=== PATIENT | male | born 1960 | race Caucasian/White ===

== ENCOUNTER 2020-04-28 17:47 | Inpatient (IN) | payer OTHER ==
[~2020-04-28] VITALS: Ht 185.4 cm; Wt 158.7 kg
[2020-04-28] MEDS ORDERED: LANTUS SOL100 UNIT/1 SUB-Q (17:57)
[2020-04-28] MEDS ORDERED: CATAPRES0.1 MG PO (17:58)
[2020-04-28] MEDS ORDERED: NOVOLOG FL100 UNIT/1 SUB-Q (17:58)
[2020-04-28] MEDS ORDERED: LASIX40 MG PO (17:58)
--- NOTE | 2020-04-28 21:45 | NUR ---
PT ARRIVED TO THE [facility] FLOOR AT 2109. HE WAS ABLE TO PIVOT TRANSFER OVER TO THE BED SBA. LEFT LEG IS ELEVATED ON PILLOW WITH CHUX UNDER FOR DRAINAGE. BRITTANY RN ENTERED ROOM AND ADMINISTERED PT'S MEDICATIONS. HE HAS VANCO INFUSING IN THIS LEFT AC IV AND R AC ROXANNA FLUSHES FINE. PT REPORTED PAIN AT 7/10. HE DENIES ANY ALLERGY TO TYLENOL ONLY THE HYDROCODONE. COMPLETED PT'S INTAKE HX AND ORDERED A SANDWICH BOX PT HAS NOT EATEN ALL DAY. PRIMARY RN BRITTANY IS IN THE ROOM WITH HIM AT THIS TIME.
--- NOTE | 2020-04-28 21:45 | NUR ---
pt ARRIVED TO FLOOR. HUY HALL IN ROOM TO DO ADMISSION. ASSESSMENT DONE. pt REPORTED PAIN IN LEFT LEG. PAIN MEDICATION GIVEN WITH OTHER MEDS. pt ALERT AND ORIENTED. BLISTERS NOTED ON LEFT LEG. ELEVATED. RED AND WARMER THAN RIGHT LEG. BOTH LEGS ARE EDEMATOUS. pt REPORTS USING "VELCRO COMPRESSION STOCKINGS" BILATERALLY. CALL LIGHT WITHIN REACH.
--- NOTE | 2020-04-28 21:51 | NUR ---
BROUGHT SANDWICH BOX TO PT, HE DENIES FURTHER NEEDS AND CALL LIGHT IS CLOSE.
--- NOTE | 2020-04-28 23:45 | NUR ---
IV ABX COMPLETED. SL. pt AWAKE. FINISHED WITH SANDWICH. WASHED LEG AND DRESSED PER ORDERS. MRSA SWAB COLLECTED PER PROTCOL. NO REQUESTS AT THIS TIME. CALL LIGHT WITHIN REACH.
--- NOTE | 2020-04-29 02:26 | NUR ---
IN TO GET PT VITALS, ADD ICE TO WATER, NO FURTHER NEEDS AT THIS TIME, PEELING OF IV SITE DRESSING NOTED, RN INFORMED
--- NOTE | 2020-04-29 03:17 | NUR ---
IN TO GIVE ABX. pt REPORTED 5/10 PAIN IN LEFT LEG, PRN GIVEN (SEE MAR). pt DIAPHORETIC, "I THINK MY FEVER BROKE, I'M FEELING A LOT BETTER." NO CHANGE NOTED ON ASSESSMENT. NO FURTHER REQUESTS CALL LIGHT WITHIN REACH.
--- NOTE | 2020-04-29 05:41 | NUR ---
ROUNDED ON pt. REPORTED PAIN, PROVIDED A WARM PACK FOR BACK PAIN. DISCUSSED PAIN MANAGEMENT. VITALS AND I&O RECORDED pt HAS YET TO VOID THIS AM. NO REQUESTS AT THIS TIME. CALL LIGHT WITHIN REACH.
--- NOTE | 2020-04-29 06:37 | NUR ---
IN TO DO VITALS. pt WOKE TO VOICE. REPORTED "I FEEL A LOT BETTER." pt HAS YET TO VOID. PROVIDED FRESH WATER AND pt WILL ATTEMPT AND CALL WHEN DONE. PROVIDED MENU AND PHONE. CALL LIGHT WITHIN REACH.
--- NOTE | 2020-04-29 07:15 | NUR ---
SHIFT REPORT FROM BRITTANY SON INCLUDED: Pt here for left leg cellulitis. Pts leg has been elevated on a pillow overnight. Leg is swollen 3+ and hot to the touch. Pt reports minimal tolerable pain in the leg at this time. Pt currently in bed, breathing even and unlabored, table and call light within reach.
--- NOTE | 2020-04-29 09:00 | NUR ---
MED PASS + ASSESSMENT Pt assessment complete, VSS, pt reports "feeling better today" and that to him his left leg "looks better already". Pts Left leg is still pink and edematous and hot to the touch. Pt getting IV ABX as ordered. Pt able to take all morning meds without dificulty. Pt educated to call with any IV site concerns, pt verbalized understanding. Pt denies further needs at this time. Pt CBG was 149, so 3 units insulin given per sliding scale, + 40units lantus as ordered. Pt sitting up in bed, having breakfast, table and call light within reach.
[2020-04-29] MEDS ORDERED: COMBIGAN EYE DRO5 ML OS (09:24)
[2020-04-29] MEDS ORDERED: NORVASC10 MG PO (09:27)
[2020-04-29] MEDS ORDERED: PENTOXIFYLLINE400 MG PO (09:28)
[2020-04-29] MEDS ORDERED: LIPITOR40 MG PO (09:36)
--- NOTE | 2020-04-29 09:36 | NUR ---
MED REC COMPLETE
--- NOTE | 2020-04-29 10:00 | NUR ---
ROUNDING Pt denies needs at this time. Table and call light within reach.
--- NOTE | 2020-04-29 11:00 | NUR ---
ROUNDING Pt denies pain, nausea, and needs at this time. Pt still getting IV ABX infused as ordered. Pt in bed, table and call light within reach.
--- NOTE | 2020-04-29 12:00 | NUR ---
CBG + GRAPHICS ARTIST + LUNCH ORDER Pt CBG was 160, 3units given per sliding scale orders. Pt ordered lunch, and given applesauce now while he waits. Pt denies pain and nausea at this time. Pt in bed, sitting up, visiting with spiritual Care Sergio. Pt in bed, table and call light within reach.
--- NOTE | 2020-04-29 12:19 | NUR ---
Spoke with Ghanshyam. 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 His and grandson will move here when he has found housing. He is currently residing at [facility]. He has not completed his insurance packet and requests assistance obtaining. He plans on returning to the [facility] where he is staying alone. I called and spoke with Andressa from and she will fax his insurance packet to complete. Will send referral to [facility] as pt is new to area and may need assist with resources until leg has healed.
--- NOTE | 2020-04-29 12:29 | NUR ---
PT ALERT, ORIENTED AND JUST MOVED HERE THIS WEEK. PT HAS LOTS OF STRESS IN HIS LIFE NOW. FROM HIS AND FAMILY, WAITING TO COME WHEN A HOME IS SECURED. NEW JOB AND OTHER HEALTH ISSUES. GAVE ENCOURAGEMENT, INFO AND G.POST. PT REQUESTED PRAYER, ALSO HELP IN SECURING PCP. INFORMED KATHRINE SON CHARGE. SHE WILL FOLLOW UP.
--- NOTE | 2020-04-29 12:35 | NUR ---
Attempted to schedule pt, unable to contact Noreen. FAxed H&P, face sheet, and med list to [facility] with request to schedule appt to establish care. Sent a note, it is unclear if pt has insurance at this time, but will in the near future.
--- NOTE | 2020-04-29 12:43 | NUR ---
ROUNDING Pt having his lunch, tray over his lap. Pt denies needs at this time. Fresh water given. Table and call light within reach.
--- NOTE | 2020-04-29 13:30 | NUR ---
Received faxed copy of insurance packet. Packet given to Ghanshyam. He states he did not get here with his readers and cannot see. He uses a 2. Obtained readers from the [employer] shop which are #2s and gave to Ghanshyam. Received call from Noreen at [facility] and she will schedule pt next week. She sent pt infomation packet for Ghanshyam to complete. Delivered to room.
--- NOTE | 2020-04-29 13:30 | NUR ---
ROUNDING Pt lying in bed, breathing even and unlabored, table and call light within reach.
--- NOTE | 2020-04-29 14:49 | NUR ---
ROUNDING Pt lying in bed, breathing even and unlabored, table and call light within reach.
--- NOTE | 2020-04-29 14:56 | NUR ---
ASSESSMENT + EDUCATION Pt assessment completed, pt reports no pain or nausea at this time. Pt lungs somewhat coarse in the bases, I.S. given for use. Pt educated on the use of the I.S. and deep breathing. Pt able to demonstrate proper use of the I.S. to 1500 x10. Pt denies further need at this time. Table and call light within reach.
--- NOTE | 2020-04-29 15:30 | NUR ---
ROUNDING Pt in bed, denies pain and nausea at this time. Pt given fresh water. Table and call light within reach.
--- NOTE | 2020-04-29 15:37 | NUR ---
ORDERED PATIENT'S DINNER FOR TONIGHT. AND BREAKFAST FOR IN THE MORNING.
--- NOTE | 2020-04-29 16:30 | NUR ---
ROUNDING + LINEN CHANGE + UP TO BATHROOM Responding to call light, pt up to bathroom with SBA and FWW. Pt denies dizzines upon standing, pt slightly unsteady without the walker. Pt able to walk to the toilet and back with minimal difficulty. Pt was incontinent of urine in the bed and was able to void 100mls into toilet. Pts linens changed and new chucks pad placed. Pt encouraged to call us to assist him to the bathroom earlier next time. Pt reports minimal tolerable pain in his left leg with movement and walking. Pts dressing was CDI in all but the top blister area. This area of the dressing was removed, cleaned with wound cleanser, gently patted dry, and covered again with sterile gauze and wrapped lightly with gauze wrap. Pt back to bed, sitting up, table and call light within reach.
--- NOTE | 2020-04-29 17:00 | NUR ---
MED PASS Pts CBG was a55 so 3 units insulin given per sliding scale, +5units per standing order insulin. Pt reports feeling cold still, after getting warm blankets, but remains afebrile. Pt able to take all meds without difficulty. Pt denies further needs at this time. Pt in bed, sitting up to eat dinner, table and call light within reach.
--- NOTE | 2020-04-29 18:39 | NUR ---
SPOKE TO MD CASTELLANOS ABOUT PTS FEVER During evening vitals, pts temp was 100.4. I removed the three blankets and jacket that the patient had on him, and retook the temp about 5 mins later. The temp was 101.5. MD Castellanos called and notified of pts temp and other vitals. Dl ordered blood cultures without a lactic. Orders put in and lab called and notified. Lab assured me they would come down to collect as soon as they could.
--- NOTE | 2020-04-29 18:42 | NUR ---
Pt feeling nauseated. PRN zofran given. Pt instructed to call with any needs. Pt in bed, table and call light within reach.
--- NOTE | 2020-04-29 19:54 | NUR ---
PATIENT IS RESTING IN BED, PATIENT HAS NO NEEDS CURRENTLY, CALL LIGHT IS IN REACH.
--- NOTE | 2020-04-29 20:37 | NUR ---
PT CALLED ASKING FOR HELP TO SIT AT EDGE OF THE BED FOR A BIT. ASSISTED HIM TO SIT UP AND HE STATES HE WILL CALL WHEN HE IS READY TO LAY DOWN. CALL LIGHT IS CLOSE.
--- NOTE | 2020-04-29 21:30 | NUR ---
PATIENT HAVING 5/10 LEFT LE PAIN, 5MG OXYCODONE GIVEN, PATIENT BACK INTO BED AFTER SITTING ON THE EDGE OF THE BED FOR AWHILE WITH SOME NAUSEA, BUT THAT HAS PAST. PATIENT'S LEFT LEG DRESSINGS REMAIN CDI. PATIENT ANXIOUS TO GO TO SLEEP. LIGTS TURNED DOWN, CALL LIGHT IN REACH.
--- NOTE | 2020-04-29 22:36 | NUR ---
PATIENT RESTING QUIETLY ON HIS LEFT SIDE, RESPIRATIONS REGULAR AND EVEN, EYES CLOSED, CALL LIGHT IN REACH.
--- NOTE | 2020-04-29 23:36 | NUR ---
PATIENT WOKE UP BRIEFLY, NOT HAVING PAIN AT THIS TIME, HAS NO CURRENT NEEDS, PATIENT IS GOING TO TRY AND GET SOME MORE SLEEP, CALL LIGHT IS IN REACH.
--- NOTE | 2020-04-30 01:14 | NUR ---
PATIENT RESTING QUIETLY IN LOW FOWLERS POSITION, LEFT LEG ELEVATED, EYES CLOSED, RESPIRATIONS ARE REGULAR AND EVEN, CALL LIGHT IS IN REACH.
--- NOTE | 2020-04-30 02:50 | NUR ---
PT CALLED TO ASK IF IV WAS ALMOST DONE, ALSO EMPTIED URINAL FOR PT, NO FURTHER NEEDS AT THIS TIME
--- NOTE | 2020-04-30 03:47 | NUR ---
PATIENT AWAKE, ICE WATER REFILLED PER REQUEST, PATIENT DENIES ANY PAIN AT THIS TIME, NO OTHER NEEDS AT THIS TIME, PATIENT GOING TO TRY AND SLEEP SOME MORE, CALL LIGHT IN REACH.
--- NOTE | 2020-04-30 05:50 | NUR ---
PATIENT HAVING 5/10 PAIN AT SHIFT CHANGE AND GOT 5MG OXCODONE X1, FEVER WAS DOWN AND PATIENT'S NAUSEA REMAINS RESOLVED. PATIENT HAD GOT SOME SLEEP AND WAS PAIN FREE FOR AWHILE. PATIENT HAD A TEMP F 100.4F AND WAS GIVEN 500MG TYLENOL. PATIENT SAYS HE IS FEELING BETTER. LOWER LEFT LEG REDRESSED, OLD DRESSING WAS CDI, BUT HAD FALLEN DOWN AND GOT VERY LOOSE. WOUND CLEANSER USED AND EXTREMITY REDRESSED. LEFT AC IV DRESSING WAS ALSO COMING LOOSE AND WAS REDRESSED. PATIENT HAS NO NEEDS AT THIS TIME. CALL LIGHT IN REACH AND PATIENT TRYING TO REST.
--- NOTE | 2020-04-30 07:22 | NUR ---
REPORT RECEIVED FROM HUY RYAN. PT RESTING IN BED WITH EYES CLOSED. HEAD OF BED ELEVATED TO 30 DEGREES. BED RAILS UP. CALL LIGHT WITHIN REACH. PT ALLOWED TO REST.
--- NOTE | 2020-04-30 07:55 | NUR ---
In for am care and blood sugar check. Glucose reading is 70, rn notified, will check again in 15minutes. Face and hands washed, urinal emptied
--- NOTE | 2020-04-30 08:00 | NUR ---
BULMARO INFORMS THIS RN THAT PTS BLOOD SUGAR IS 70. RENETTA CHAMBERLAIN ASKED TO PROVIDE JUICE AND RECHECK BLOOD SUGAR EVERY 15 MINUTES UNTIL SUGARS ARE ABOVE 100. RENETTA VERBALIZES UNDERSTANDING.
--- NOTE | 2020-04-30 08:29 | NUR ---
MORNING ASSESSMENT AND MEDICATION DUE. PT SITTING UP IN BED WITH HEAD OF BED AT 60 DEGREES, FINISHING BREAKFAST. PT ABLE TO EAT ALL OF OATMEAL AND SOME MILK. 5 UNITS OF INSLUIN LISPRO HELD RELATED TO LOW BLOOD SUGAR EPISODE THIS MORNING. BLOOD SURGAR REASSESSED AT THIS TIME, NOW - 115. PT REPORTS HE KNEW HIS BLOOD SUGAR WAS LOW BECASUE "I STARTED FEELING A LITTLE SWEATY." PT REPORTS SYMPTOMS HAVE NOW RESOLVED. PT REPORTS 4/10 PAIN IN LEFT LOWER EXTREMITY, DENIES NEED FOR PAIN MEDICATION AT THIS TIME STATING PAIN IS TOELERABLE. ASSESSMENT DONE. LEFT LOWER EXTERMITY SWOLEN, RED AND HOT TO TOUCH. BLISTERS COVERED WITH GAZUE DRESSING PLACED BY MECHANICAL SPECIALIST. DRESSING LEFT IN PLACE, WILL CHANGE AFTER PTS SHOWER THIS AFTERNOON. REDENED AREA OUTLINED AND DATED. LEFT AC IV LEAKING AND PAINFUL WITH FLUSH. IV DC'D PER PROTOCOL. RIGHT AC IV SALINE LOCKED, ALCOHOL CAP APPLIED. LAB TO BEDSIDE FOR VANCO TROUGH, PT TOLERATED LAB DRAW WELL. PT REPORTS BASELINE NEUROPATHY AND PAIN WITH AMBULATION. 1 PERSON ASSIST UP TO CHAIR, PT STATES HE IS UNSTEADY ON FEET RELATED TO THE PAIN IN HIS LEFT LEG/FOOT. PT DEMONSTRATES USE OF I.S. REACHING 2000ML. VITALS SIGNS IMPROVING, PT NO LONGER FEBRIAL. PT REMAINS UP TO CHAIR. FRUIT PROVIDED PER PT REQUEST RELATED TO LOW BLOOD SUGARS. PT DENIES ADDITIONAL REQUESTS OR COMPLAINTS. CALL LIGHT WITHIN REACH.
--- NOTE | 2020-04-30 09:56 | NUR ---
PATIENT AWAKE IN CHAIR, FACING WINDOW. VITALS AND I&OS CHARTED. CALL LIGHT IN REACH, GARBAGE EMPTIED
--- NOTE | 2020-04-30 10:10 | NUR ---
THIS RN TO ROOM TO CHECK ON PT. PT REPORTS HE IS READY TO TAKE A SHOWER AND GET BACK TO BED. LOCKSTITCH COAT JOINER TO BEDSIDE TO ASSIST PT WITH SHOWER. DRESSING TO LEFT LOWER EXTREMITY REMOVED. PT REPORTS PAIN CONTINUES AT 4/10 AND IS TOLERABLE AT THIS TIME. LOCKSTITCH COAT JOINER AT BEDSIDE. NO ADDITIONAL REQUESTS OR COMPLAINTS.
--- NOTE | 2020-04-30 11:02 | NUR ---
1PA PATIENT INTO SHOWER CHAIR AND WHEELED TO BR FOR BM AND THEN SHOWER. PATIENT WILL CALL FOR ASSISTANCE IF NEEDED.
--- NOTE | 2020-04-30 11:45 | NUR ---
THIS RN IN TO DRESS BLISTERS ON LLE. GAUZE APPLIED TO BLISTERS AND WRAPPED WITH GAUZE WRAP, THEN SLEVE APPLIED.. PT TOLERATED WELL WITH NO PAIN.
--- NOTE | 2020-04-30 12:20 | NUR ---
MD TO BEDSIDE FOR ROUNDS. DRESSING PLACED BY HUY VALIENTE AFTER PTS SHOWER REMOVED PER MD FOR VISUALIZAION OF LEFT LOWER EXTREMITY. DRESSING REAPPLIED WITH MD AT BEDSIDE, VERBAL ORDERS FOR PRN DRESSING CHANGES GIVEN, AND ENTERED. LUNCH ORDER PLACED FOR PT. PT WORKING ON PAPERWORK IN BED. DEMONSTRATES USE OF I.S. REACHING 1800ML. NO ADDITONAL REQUESTS OR COMPLAINTS AT THIS TIME. BED RAILS UP. CALL LIGHT WITHIN REACH.
--- NOTE | 2020-04-30 12:55 | NUR ---
LUNCH ARRIVED. MEDICATIONS GIVEN (SEE MAR). PT EATING WITH HEAD OF BED ELEVATED TO 60 DEGREES. PT REPORTS FEELING COLD. TEMPERATURE ASSESSED, 97.4 ORAL. PT REPORTS 3/10 PAIN THAT IS TOLERABEL AT THIS TIME AND DENIES NEED FOR PAIN MEDICATIONS. INSLUIN AND POTASSIUM GIVEN. NO ADDITIONAL REQUESTS OR COMPLAINTS AT THIS TIME. CALL LIGHT WITHIN REACH. BED RAILS UP.
--- NOTE | 2020-04-30 13:35 | NUR ---
AFTERNOON ASSESSMENT, VANCO ARRIVED FROM [facility]. PT RESTING IN BED, FINISHED WITH LUNCH. PT REPORTS 3/10 PAIN IN LEFT LOWER EXTREMITIY AT THIS TIME, REPORTS PAIN IS TOLERABEL AND DENIES NEED FOR PAIN MEDICATION. IV TO RIGHT AC ASSESSED, FLUSHES EASILY, NO REDNESS OR SWELLING NOTED. PT DENIES PAIN AT IV SITE. PT EDUCATION DONE REGARDING VANCO INFUSION, PT ADVISED TO NOTIFY RN IF SITE BECOMES SORE OR PAINFUL. PT VERBALIZES UNDERSTANDING. ASSESSMENT DONE: LUNG SOUNDS CLEAR. PT DEMONSTRATES USE OF I.S. REACHING 1800ML. +2 PITTING EDEMA CONTINUES TO RIGHT LOWER EXTREMITY, +3 PITTING EDEMA TO LEFE LOWER EXTREMITY. REDNESS, WARMTH UNCHANGED TO LEFT LOWER EXTREMITY. GAUZE DRESSING IN PLACE, C/D/I, BLISTERS UNBROKEN AT THIS TIME. PT DENIES ADDIITONAL REQUESTS OR COMPLAINTS AND STATES HE WOULD LIKE TO TAKE A NAP. PT POSIITONED FOR COMFORT. HEAD OF BED ELEVATED TO 35 DEGREES. CALL LIGHT WITHIN REACH. NO ADDITIONAL REQUSTS OR COMPLAINTS. BED RAILS UP.
--- NOTE | 2020-04-30 14:34 | NUR ---
PLAN FOR AMA RICE IN HALLS. PRE-MEDICATED WITH 5MG OXYCODONE. SURINDERO COMPLETED. PT SALINE LOCKED.
--- NOTE | 2020-04-30 15:08 | NUR ---
THIS RN TO ROOM TO CHECK ON PT. PT RESTING IN BED WITH EYES CLOSED. RESPIRATIONS EVEN AND UNALBORED. HEAD OF BED ELEVATED TO 30 DEGREES. BED RAILS UP. CALL LIGHT WITHIN REACH. PT ALLOWED TO REST.
--- NOTE | 2020-04-30 16:03 | NUR ---
AMBULATED SBA W/ FWW IN GONZALEZ, GAIT STABLE, AMBULATED TO END OF GONZALEZ AND BACK W/O SOB, PT STATES "ONLY A SMALL AMOUNT OF PAIN" IN THE ARCH OF HIS FOOT WHILE AMBULATING. PT WAS ABLE TO BEAR WEIGHT OF LEFT FOOT. PAIN REPORTED 2/10 WITH AMBULATION. BACK TO BE CALL LIGHT WITHIN REACH
--- NOTE | 2020-04-30 17:20 | NUR ---
MEDICATION DUE. PT REPORTS AMBULATEING WITH STUDENT RN AND STATES AMBULATION "WENT PRETTY WELL." PT REPORTS 4/10 PAIN AT THIS TIME AND DENIES NEED FOR PAIN MEDICATION. PT DENIES NAUSEA. BLOOD SUGAR WITHIN RANGE, NO INSULIN NEEDED. DINNER ORDER PLACED PER PT PREFERENCE. MEDICATIONS GIVEN. PT TALKING ABOUT HOME TOWN WITH STEEL ROD BUSTER. DRESSING TO LEFT LOWER EXTREMITY NOTED TO HAVE MODERATE AMOUNT OF SERIOUS DRAINAGE ON TOP OF FOOT. GAUZE DRESSING CHANGED. ALL BLISTERS REMAIN INTACT INCLUDING BLUISTER ON TOP OF FOOT, SOUL OF FOOT, AND BLISTERS ON TAPIA X3. NEW GAUZE DRESSING IN PALCE WITH STOCKING NET OVER THE TOP. PT REPORTS DRESSING FEELS COMFORTABLE. NO ADDITIONAL REQUESTS OR COMPLAINTS. CALL LIGHT WITHIN REACH. BED RAILS UP.
--- NOTE | 2020-04-30 18:03 | NUR ---
DINNER ARRIVED. PT SITTING UP IN BED, HEAD OF BED ELEVATED TO 60 DEGREES. VITAL SIGNS STABLE, PT VOIDING QUANITTY SUFFICIENT. PT EATING DINNER. NO ADDITIONAL REQUESTS OR COMPLAINTS. CALL LIGHT WITHIN REACH.
--- NOTE | 2020-04-30 18:13 | NUR ---
PT HERE FOR LEFT LEG CELLULITIS. PT UP TO CHAIR AND TO AMBULATE WITH ONE PERSON ASSIST AND FRONT WHEEL WALKER THIS SHIFT. PT TOLERATING 60 G CARB DIET WITH IMPROVING APPITITE. BLOOD SUGAR CHECKS WITH MEALS AND AT NIGHT WITH SLIDING SCALE INSLUIN. HYPOGLYCEMA NOTED THIS MORNING, SYMPTOMATIC WITH DIAPHROESIS, PROTOCOL FOLLOWED, INSLUIN ORDERS ADJUSTED. SHOWER THIS SHIFT. GAZUE DRESSING CHANGE TO LEFT LOWER EXTREMITY X3. LEFT LOWER EXTREMITY REMAINS RED, WARM AND SWOLLEN. REDDENED AREA OUTLINED. PT FEBRIAL AT START OF SHIFT, AFEBRIAL FOR THE REMAINDER OF SHIFT. EDEMA CONTINUES TO LOWER EXTREMITIES. PT VOIDING QUANTITY SUFFICIENT. PT USES CALL LIGTH APPROPRIATLY.
--- NOTE | 2020-04-30 19:05 | NUR ---
RECEIVED REPORT FROM HUY CISNEROS. pt RESTING IN BED EATING DINNER. WHITEBOARD UPDATED. CALL LIGHT WITHIN REACH.
--- NOTE | 2020-04-30 20:45 | NUR ---
IN TO DO ASSESSMENT AND MEDS. pt RESTING IN BED. FINISHED MOST OF DINNER. ASSESSMENT DONE. SEROUS DRAINAGE NOTED. DRESSING CHANGED PER ORDERS ON LEFT LEG. BOTH LEGS EDEMATOUS. LEFT LEG MORE SO THAN RIGHT. RED AND WARMER THAN RIGHT LEG. REDNESS WITHIN OUTLINE. BLOOD SUGAR WITHIN RANGE. MEDICATIONS GIVEN (SEE MAR). URINAL EMPTIED. ROOM TIDIED. NO REQUESTS AT THIS TIME. CALL LIGHT WITHIN REACH.
--- NOTE | 2020-04-30 23:07 | NUR ---
ROUNDED ON pt. IN BED WITH EYES CLOSED, RESPIRATIONS REGULAR AND UNLABORED. CALL LIGHT WITHIN REACH.
--- NOTE | 2020-05-01 01:19 | NUR ---
VANCO INFUSING PER ORDERS. REPORTED 3/10 PAIN, REFUSED PAIN MEDICATION AT THIS TIME. LEFT LEG ELEVATED. NO FURTHER REQUESTS AT THIS TIME. CALL LIGHT WITHIN REACH.
--- NOTE | 2020-05-01 02:17 | NUR ---
CALL LIGHT ON. IV INFUSION COMPLETED, SL. ASSESSMENT DONE. DRESSING CDI. PAIN REMAINS TOLERABLE WITHOUT MEDICATION. NO REQUESTS AT THIS TIME. CALL LIGHT WITHIN REACH.
--- NOTE | 2020-05-01 04:01 | NUR ---
CALL LIGHT ON. pt REPORTED "I FEEL LIKE MY BLOOD SUGAR MIGHT BE LOW." IN IMMEDIATELY TO ASSESS pt REPORTED FEELING "SWEATY" BLOOD SUGAR LOW, PROVIDED ORANGE JUICE AND CRACKERS WILL RECHECK PER PROTOCOL. CALL LIGHT WITHIN REACH.
--- NOTE | 2020-05-01 04:20 | NUR ---
RECHECKED BLOOD SUGAR, PROVIDED MORE JUICE. WILL CONTINUE TO MONITOR. pt REPORTS "I FEEL A LOT BETTER."
--- NOTE | 2020-05-01 04:38 | NUR ---
BLOOD SUGAR RECHECKED, 91. PROVIDED APPLESAUCE. pt REPORTED "I FEEL BETTER, I THINK I'M GOOD." CALL LIGHT WITHIN REACH.
--- NOTE | 2020-05-01 05:02 | NUR ---
RECHECKED BLOOD SUGAR, ABOVE 100. VITALS AND I&O RECORDED. NO REQUESTS AT THIS TIME. PAIN IS TOLERABLE. CALL LIGHT WITHIN REACH.
--- NOTE | 2020-05-01 06:47 | NUR ---
UPDATED MD ON pt HYPOGLYCEMIA. ORDERED TO HOLD MORNING LANTUS. MAR UPDATED.
--- NOTE | 2020-05-01 08:03 | NUR ---
REPORT RECEIVED FROM HUY SOTO. PT AWAKE WITH LEG PROPPED ON PILLOW. EXPOSED BLISTER HAS POPPED. BLOOD SUGAR WAS LOW THIS MORNING BUT HAS NOW COME UP TO 121. BREAKFAST AT BEDSIDE.
--- NOTE | 2020-05-01 08:40 | NUR ---
Note from 04/30/20: Vancomycin trough level = 26.8. Reduce dose from 2000mg q 12 hr to 1250mg q 12 hr. Begin at 1300 today
--- NOTE | 2020-05-01 08:53 | NUR ---
*Draw Vancomycin trough level today at 1230*
--- NOTE | 2020-05-01 09:20 | NUR ---
PT GIVEN SHOWER THINGS AND IV ACCESS COVERED. TOLD TO USE CALL LIGHT IN BATHROOM IF HE NEEDS ANYTHING. EXPLAINED THAT WE WOULD DO DRESSING CHANGE AFTER SHOWER.
--- NOTE | 2020-05-01 10:59 | NUR ---
CHANGED DRESSING ON LEFT FOOT. BLISTERS HE STATES HAVE GOTTEN LARGER. APPEAR READY TO POP AND DRAIN. MINIMALLY PAINFUL.
--- NOTE | 2020-05-01 13:27 | NUR ---
PT AGAIN DID NOT REQUIRE INSULIN. ATE HIS LUNCH WHICH WAS A BETTER CHOICE, MOSTLY LOW CARB AFTER TALKING ABOUT DIET THIS MORNING. MADE HIM NEW COFFEE. DENIES CONCERNS ATT.
--- NOTE | 2020-05-01 13:37 | NUR ---
Vancomycin trough level drawn at 1230 = 26mcg/ml. Hold vancomycin & redraw trough level in the morning at 0600
--- NOTE | 2020-05-01 14:00 | NUR ---
REPROT RECIEVED. THIS NURSE TAKING OVER CARES FOR PT. PT REPORTED 6/10 PAIN. OXYCODONE ADMISNTERED. ASSESSMENT COMPLETED. PT DENIES FURTHER NEEDS. CALL LIGHT IN REACH.
--- NOTE | 2020-05-01 18:27 | NUR ---
ABULATED PT IN GONZALEZ 1 SMALL LAP. REPORTS SOME PAIN IN LEFT FOOT ARCH WITH AMBULATION BUT TOLERATED WELL WITH FWW. PT NOW BACK TO BED. CALL LIGHT IN REACH.
--- NOTE | 2020-05-01 19:07 | NUR ---
RECEIVED REPORT FROM HUY VALIENTE. pt RESTING IN BED. REQUESTED A COOKIE, DISCUSSED 60 GRAM CARB DIET. CALL LIGHT WITHIN REACH. WHITEBOARD UPDATED.
--- NOTE | 2020-05-01 20:48 | NUR ---
ROUNDED CHARGE. pt RESTING IN BED. PRIMARY RN BRITTANY IN ROOM. ICE WATER PROVIDED. NO ADDITIONAL REQUESTS AT THIS TIME.
--- NOTE | 2020-05-01 21:15 | NUR ---
IN TO DO ASSESSMENT AND MEDS. pt RESTING IN BED. REPORTED 4/10 PAIN IN FOOT, PRN GIVEN (SEE MAR). DRESSING CHANGED. LARGE AMOUNT OF DRAINAGE FROM DORSAL BLISTER ON FOOT. SKIN NOT INTACT ON THAT BLISTER. PILLOW CASES SATURATED, LINENS CHANGED. VITALS AND I&O RECORDED. NO FURTHER REQUESTS AT THIS TIME. CALL LIGHT WITHIN REACH.
--- NOTE | 2020-05-02 01:30 | NUR ---
PATIENT CALLED AND ASK FOR DIET SODA AND CUP OF ICE. GIVEN. URINAL EMPTIED. NO OTHER NEEDS AT THIS TIME.
--- NOTE | 2020-05-02 05:50 | NUR ---
pt RESTING IN BED AWAKE. VITALS, I&O, AND ASSESSMENT DONE. pt REPORTED 3/10 PAIN. NO PAIN MEDS REQUIRED AT THIS TIME. DRESSING HAS A SCANT AMOUNT OF SEROUS DRAINAGE. pt GAVE ORDER FOR BREAKFAST, EDUCATED ON IMPORTANCE OF PROTEIN AND LIMITING CARB INTAKE. CALL LIGHT WITHIN REACH.
--- NOTE | 2020-05-02 07:43 | NUR ---
PT ALERT AND INTERACTIVE AT TIME OF BEDSIDE REPORT. DENIES NEEDS OR DISCOMFORTS. FRESH H20 PROVIDED, URINAL EMPTIED.
--- NOTE | 2020-05-02 08:06 | NUR ---
Vancomycin dose changed to 2000mg q 24 hrs, first dose today @ 0800
--- NOTE | 2020-05-02 09:13 | NUR ---
PATIENT SITTING UP IN BED WORKING ON PAPERWORK. WARM WASHCLOTH GIVEN. ORAL CARE SUPPLIES AT SINK, PATIENT SAID NEXT TIME HE IS UP HE WILL DO ORAL CARE. WANTS TO SHOWER LATER TODAY. CALL LIGHT IN REACH. NO FURTHER NEEDS AT THIS TIME.
--- NOTE | 2020-05-02 10:01 | NUR ---
PT TOLERATES 100% OF MORNING MEAL CONTINUES UP IN BED WITH LEGS ELEVATED. PT DOING SELF CARES ANTICIPATES SHOWER AFTER ABX INFUSION. CELLULITIS EDUCATON PROVIDED VERBALLY AND WRITTEN
--- NOTE | 2020-05-02 10:58 | NUR ---
ASSISTED PT TO SHOWER. LLE UNWRAPPED TO WASH WITH ANTIMICROBIAL SOAP.
--- NOTE | 2020-05-02 11:45 | NUR ---
Spoke with Ghanshyam. He is feeling much better. Has completed his insurance paper work and asks if I can fax to [facility]. Faxed to Andressa in HR and papers then returned to [place] with confirmation sheet.
--- NOTE | 2020-05-02 12:06 | NUR ---
CONSULT RECEIVED FOR DIABETIC DIET EDUCATION. PATIENT HAS HAD DIABETES FOR 12-13 YEARS. HE MET WITH A FLAVORER WHEN FIRST DIAGNOSED BUT HAS NOT SEEN AN RD OR FLAVORER SINCE. HE JUST MOVED TO [place] LAST WEEK FROM [place] TO WORK AN QUALITY ASSURANCE FOR THE [employer]. HE HAS NOT BEEN FOLLOWING ANY SPECIFIC MEAL PLAN. HE WAS ABLE TO STATE 3 CARBOHYDRATE FOODS. HE ASKED IF THERE IS A DIFFERENCE BETWEEN THE CARBS IN REFINED SUGARS LIKE COOKIES OR A CANDY BAR COMPARED TO WHOLE FRUIT OR WHOLE GRAINS. I EXPLAINED THAT ALL CARBS BREAK DOWN INTO GLUCOSE. THE DIFFERENCE BETWEEN FRUIT OR A CANDY BAR IS THAT THE FRUIT WILL HAVE FIBER, VITAMINS, AND MINERALS AND THE CANDY BAR JUST HAS FAT AND ADDED SUGAR WHICH COULD CAUSE A FASTER RISE IN BLOOD SUGAR. HE UNDERSTOOD. HE TENDS TO WORK THROUGH MEALS, NOT TAKING AN ACTUAL MEAL BREAK, INSTEAD HE WILL WARM UP A QUICK SANDWICH OR EAT A BAG OF CHIPS. WE TALKED ABOUT KEEPING HIS CARBOHYDRATE INTAKE CONSISTENT, FOR EXAMPLE, NO MORE THAN 60 GM OF CARB PER EACH MEAL LIKE THE DIET HE IS ON HERE. MAKING SURE TO GET NON-STARCHY VEGGIES IN AT LUNCH AND DINNER. 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 PROVIDED HIM WITH A CARB-COUNTING HANDOUT FROM THE [facility] ALONG WITH A LOW-CARB SNACK LIST THAT HE CAN TAKE HOME. I MENTIONED WE CAN SEE HIM AN OUTPATIENT IF HE FEELS LIKE HE NEEDS MORE GUIDANCE. HE APPRECIATED MY TIME. HIS LUNCH IS HERE SO I LEFT AND ALLOWED HIM TO EAT. WILL REMAIN AVAILABLE FOR ANY OTHER NUTRITION NEEDS.
--- NOTE | 2020-05-02 12:39 | NUR ---
DRESSING CHANGED TO LEFT FOOT AFTER SHOWER. PT AGREES HE FEELS GOOD, GLAD TO HAVE A SHOWER. MET WITH NOTE TELLER EARLIER AGREES SHE WAS HELPFUL AND ANSWERED ALL OF HIS QUESTIONS.
--- NOTE | 2020-05-02 13:00 | NUR ---
PT SITTING UP IN BED, WATCHING TV. PT STATES HE FEELS MUCH BETTER TODAY, ABLE TO SLEEP SOME. PT HAS MADE CONNECTION WITH HELP OF CM STAFF TO GET PCP. PT STILL NEEDS TO FIND HOUSING. HIS IS MOVING, REQUESTED I CONTACT HER TO ANSWER ANY QUESTIONS SHE MAY HAVE REGARDING INFECTION INFO I PASSED ONTO HIM. CALLED, NO ANSWER AND COULD NOT LEAVE A MSG. WILL TRY AGAIN.
--- NOTE | 2020-05-02 13:55 | NUR ---
PT UP TO THE CHAIR FOR A TIME RETURNS TO BED LEG ELEVATED. DENIES NEEDS OR DISCOMFORTS. STATES HIS LOWER EXTREMITY ONLY HURTS WHEN HE PUTS PRESSURE ON IT.
--- NOTE | 2020-05-02 14:21 | NUR ---
PATIENT IN BED RESTING. VITALS AND I&O'S CHARTED. PATIENT SHOWERED EARLIER, IND. CALL LIGHT IN REACH. NO FURTHER NEEDS AT THIS TIME.
--- NOTE | 2020-05-02 17:15 | NUR ---
PT UP IN THE CHAIR FOR EVENING MEAL DENIES NEEDS OF. CALL LIGHT IN LAP
--- NOTE | 2020-05-02 18:13 | NUR ---
PATIENT IN BED WATCHING TV. VITALS AND I&O'S CHARTED. CALL LIGHT IN REACH. NO FURTHER NEEDS AT THIS TIME.
--- NOTE | 2020-05-02 19:05 | NUR ---
RECEIVED REPORT FROM HUY WILSON. pt RESTING IN BED, RESPIRATIONS REGULAR AND UNLABORED. CALL LIGHT WITHIN REACH. WHITEBOARD UPDATED.
--- NOTE | 2020-05-02 19:15 | NUR ---
CHARGE NURSE REPORT RECEIVED FROM [facility]. NO NEEDS AT THIS TIME.
--- NOTE | 2020-05-02 21:30 | NUR ---
CALL LIGHT ANSWERED. EMPTIED URINAL. V/S AND I&O DONE AND RECORDED. ICE WATER AND CUP OF ICE PROVIDED.
--- NOTE | 2020-05-02 22:00 | NUR ---
IN TO DO ASSESSMENT. pt RESTING IN BED. ASSESSMENT DONE. MEDICATIONS GIVEN (SEE MAR). IV NOT PATENT DC'D PER PROTOCOL. NEW IV ATTEMPTED, UNSUCESSFUL. DRESSING CHANGE TO LEFT FOOT AND ANKLE. BLISTER IN ARCH HAS DECREASED IN SIZE IN LAST 12 HOURS, BRIGHT RED NOTICED SURROUNDING THAT BLISTER. DRESSING CHANGE PER ORDERS. CALL LIGHT WITHIN REACH.
--- NOTE | 2020-05-02 23:08 | NUR ---
IV STARTED BY HUY NEGRON. pt TOLERATED WELL.
--- NOTE | 2020-05-03 02:02 | NUR ---
PATIENT REQUESTED A FRESH WATER AND TO HAVE HIS URNAIL EMPTIED. CALL LIGHT IN REACH. DENIES ANY FUTHER NEEDS AT THIS TIME.
--- NOTE | 2020-05-03 02:12 | NUR ---
IN TO DO BLOOD SUGAR CHECK. INSULIN PER ORDERS. ASSESSMENT DONE. LEFT LEG ELEVATED. DRESSING CDI AT THIS TIME. CALL LIGHT WITHIN REACH.
--- NOTE | 2020-05-03 06:16 | NUR ---
ROUNDED ON pt. VITALS AND I&O RECORDED. FRESH WATER PROVIDED. NO REQUESTS AT THIS TIME. REFUSED PAIN MEDS. CALL LIGHT WITHIN REACH.
--- NOTE | 2020-05-03 07:15 | NUR ---
REPORT RECEIVED FROM HUY SOTO. PT RESTING IN BED, AWAKE AND RESPONDING TO QUESTIONS APPROPRIATLY. PT REPORTS 2/10 INTERMITTANT ACHING PAIN IN THE ARCH OF HIS LEFT FOOT STATING "IT COMES AND GOES." PT DENIES NEED FOR PAIN MEDICATION. PT DENIES ADDITIONAL REQUESTS OR COMPLAINTS AT THIS TIME. DRESSING TO LEFT FOOT C/D/I. CALL LIGHT WITHIN REACH. PT ANTICIPATING BREAKFAST.
--- NOTE | 2020-05-03 07:38 | NUR ---
MORNING ASSESSMENT AND MEDICATION DUE. PT AWAKE AND RESTING IN BED. PT REPORTS 2/10 INTERMITTANT PAIN IN THE "ARCH AREA" OF HIS LEFT FOOT. DRESSING TO LEFT FOOT REMAINS C/D/I. PT DENIES NEED FOR PAIN MEDICATION AT THIS TIME. IV TO LEFT FORARM WNL WITH BRISK BLOOD RETURN NOTED, FLUSHES EASILY, ALCOHOL CAP APPLIED. BASELINE NEUROPATHY NOTED IN LOWER EXTREMITIES, PT UNABLE TO IDENTIFY WHICH TOE IS TOUCHED. PT REPORTS THIS IS NEUROPATHY PER HIS BASELINE. LUNG SOUNDS CLEAR, PT DEMONSTRATES USE OF I.S. REACHIGN 2000ML. ONGOING +2 PITTING EDEMA NOTED TO RIGHT LOWER EXTREMITY, +3 TO EDEMA TO LEFT LOWER EXTREMITY. LEFT LOWER EXTREMITY CONTINUES TO BE RED AND WARM TO TOUCH. REDNESS REMAINS WITHIN OUTLINED AREA. DRESSING REMOVED. BLISTERS NOTED TO BE LESS SWOLLEN. BLISTER TO TOP OF LEFT TAPIA (MEASURES 13CM IN LENGTH AND 5CM AT WIDEST POINT) FLUSH AGAINS SKIN. BLISTER TO TOP OF LEFT FOOT (MEASURES 7CM LENGTH AND 8CM WIDE) HAS BURST, BLISTER BED DARKER RED. BLISTER TO BOTTOM OF LEFT FOOT (IN FOOT ARCH, MEASURES 3CM LONG AND 6CM WIDE) REMAINS INTACT, SMALL AMOUNT OF FLUID NOTED INSIDE BLISTER. LEFT LOWER EXTREMITY REMAINS OPEN TO AIR AT THIS TIME PER PT REQUEST. WILL REAPPLY DRESSING AFTER PT IS FINISHED WITH SHOWER. REDNESS NOTED IN TEX AREA, MICONAZOLE POWDERED ORDERED, WILL APPLY AFTER SHOWER. PT UP TO AMBULATE X1 IN [place] WITH 1 PERSON STAND BY ASSIST AND FRONT WHEEL WALKER. PT STEADY ON FEET, REPORTS 2/10 PAIN IN ARCH OF LEFT FOOT WITH AMBULATION, DENIES NEED FOR PAIN MEDICATION. PT REMAINS UP TO CHAIR AFTER AMBULATION. EATING BREAKFAST. SHOWER PLANNED FOR AFTER BREAKFAST. VITAL SIGNS STABLE, MEDICATIONS GIVEN (SEE MAR). PT DENIES ADDIITONAL REQUESTS OR COMPLAINTS. CALL LIGHT WITHIN REACH. LINENS CHANGED.
--- NOTE | 2020-05-03 07:48 | NUR ---
Faxed updated notes to [facility] and requested an appt time for pt to establish care. Per Dr. Lizama in 829 meeting yesterday pt august tomorrow. Had discussed appt last week with Noreen from [facility] for pt to see Dr. Wolff.
--- NOTE | 2020-05-03 08:21 | NUR ---
Pt. up sitting in chair. Breakfast brought to room. Bed linens changed. no other needs at this time. call light with in reach
--- NOTE | 2020-05-03 09:54 | NUR ---
CHARGE NOTE ROUNDING REPORT. PT JUST COMPLETED SHOWER, NOW SITTING UP IN CHAIR. REPORTS PAIN IN LLE IS MUCH IMPROVED FROM PREVIOUS DAY. SKIN ASSESSMENT COMPLETED. LLE CELLULITIS IS IMPROVING IN APPEARANCE. REDNESS IN DECREASING, ALL BLISTERS HAVE DEMINISHED IN SIZE WITH LITTLE OR NO FLUID PRESENT. PT IS FEELING MUCH BETTER AND KNOWS IT WILL TAKE TIME TO HEAL. DENIES NEEDS.
--- NOTE | 2020-05-03 09:56 | NUR ---
[facility] student assisted pt. with shower. no other needs at this time
--- NOTE | 2020-05-03 09:57 | NUR ---
PT FINISHED WITH BREAKFAST AND SHOWER, MEDICATIONS ARRIVED FROM [facility]. PT UP TO CHAIR TALKING WITH DIGITAL CARTOGRAPHER. AFTER CONVERSTATION, PT REQUESTS DEODRANT, PROVIDED PER REQUEST, PT APPLIES INDPENDANTLY. MICONAZOLE APPLIED TO TEX AREA. IV ASSESSED, WNL, BRISK BLOOD RETURN NOTED. VANCOMYACIN STARTED (SEE MAR). MOISTERIZER APPLIED TO LEFT LOWER EXTREMITY PER MD ORDER. GAUZE DRESSING REAPPLIED, HELD IN PLACE WITH NETTING SOCK. PT REPORTS DRESSING FEELS COMFORTABLE. COFFE AND WARM BLANKET PROVIDED. PT REMAINS UP TO CHAIR. PT DENIES ADDIITONAL REQUESTS OR COMPLAINTS. CALL LIGHT WITHIN REACH.
--- NOTE | 2020-05-03 10:13 | NUR ---
THIS RN TO ROOM WITH MD FOR ROUNDS. MD ABLE TO VISUALIZE LEFT LOWER EXTREMITY DURING DRESSING REAPPLICATION. PT DEMONSTRATES USE OF I.S. REACHIGN 2000ML. PT PLANS TO WALK AGAIN "AFTER THE VANCO." NO ADDITONAL REQUESTS OR COMPLAINTS AT THIS TIME. CALL LIGHT WITHIN REACH.
--- NOTE | 2020-05-03 10:13 | NUR ---
STOPPED IN QUICKLY TO GIVE PATIENT A LIST OF NON-STARCHY VEGGIES THAT IS MORE SPECIFIC THAN THE HANDOUT I PROVIDED YESTERDAY. HE MENTIONED THAT HE HAD A VEGGIE PLATE A SNACK YESTERDAY AND ENJOYED THAT. HE IS ALREADY THINKING ABOUT BUYING MORE VEGGIES AND FRUIT TO HAVE AT HOME READY TO EAT INSTEAD OF CHIPS OR OTHER LESS NUTRITIOUS CONVENIENCE FOODS.
--- NOTE | 2020-05-03 10:54 | NUR ---
Received consult for wound care when pt's discharges. Spoke with Allen and he will be best served by the wound clinic. Pt plans to return to work on discharge and will not be homebound which is a requirement for Home Health. Will fax chart to [facility] when pt is ready for dc. Per notes he will be here 1-2 more days for IV therapy.
--- NOTE | 2020-05-03 11:51 | NUR ---
NOON MEDCATIONS DUE. THIS RN TO ROOM. PT UP TO CHAIR. PT REPORTS 4/10 PAIN IN THE ARCH OF HIS LEFT FOOT. PT REQUESTS PAIN MEDICATIONS. SEE MAR FOR MEDICATION GIVEN. CBG = 241. PT NOTED TO HAVE HAD [place] TOAST AND "TWO MILKS" FOR BREAKFAST. INSULIN GIVEN (SEE MAR). PT EATING LUNCH ([facility] [employer]). NO ADDITIONAL REQUESTS OR COMPLAINTS. CALL LOIDA MEANS.
--- NOTE | 2020-05-03 12:20 | NUR ---
PT ALERT, ORIENTED AND SITTING UP IN CHAIR. PT STATED HE IS FEELING MUCH BETTER, WOULD LIKE TO HAVE WELL SERVICES OPERATOR VISIT TODAY. WILL NOTIFY [facility]. NURY MCKEON WILL FOLLOW
--- NOTE | 2020-05-03 12:57 | NUR ---
THIS RN TO ROOM TO CHECK ON PT. PT CONTINUES EATING LUNCH UP TO CHAIR. PT REPORTS HE WOULD LIKE TO WALK AFTER LUNCH. PT REPORTS 2/10 PAIN IN LEFT FOOT ARCH AT THIS TIME AND DENIES NEED FOR ADDITONAL PAIN MEDICATION. NO ADDITIONAL REQUESTS OR COMPLAINTS. CALL LIGHT WITHIN REACH.
--- NOTE | 2020-05-03 13:37 | NUR ---
AFTERNOON ASSESSMENT DUE. PT RESTING IN BED, FINISHED WITH LUNCH. PT REPORTS 3/10 PAIN IN LEFT FOOT/ARCH. PT DENIES NEED FOR ADDITIONAL PAIN MEDICATION. PT REPORTS "I'VE BEEN THINKING A LOT WHILE I'M HERE ABOUT HOW TO BE MORE HEALTHY AT HOME." PT MENTIONS CHANGES IN HIS DIET AND ACTIVITY THAT HE WOULD LIKE TO MAKE. ASSESSMETN DONE: LEFT LOWER EXREMEITY REMAINS RED AND WARM TO TOUCH. REDNESS NOTED TO BE WITHIN MARKED LINES. SWELLING TO LEFT LOWER EXTREMITY CONTINUES TO BE +3 PITTING EDEMA. RIGHT LOWER EXTREMITY ALSO EXHIBITS +2 PITTING EDEMA. PULSES FELT, FAINT IN LEFT LOWER EXREMITY. TEX AREA REMAINS RED, MICONAZOLE POWDER IN PLACE. PT UP TO AMBULATE IN [place], AMBULATES WITH STAND BY ASSIST AND FRONT WHEEL WALKER X 1 LAP IN [place]. PT ABLE TO AMBULATE LAST 15 FEET WITHOUT THE WALKER. PT STEADY ON FEET AND REPORTS HE FEELS HE NO LONGER NEEDS THE WALKER. PT BACK TO ROOM, SITTING ON EDGE OF BED. PT TALKING ON PHONE AND MENTIONS TO HIS HOW HE WOULD LIKE TO "EAT HEALTHIER FOODS" AT HOME. IV INFUSION COMPLETE. IV SALINE LOCKED AND ALCOHOL CAP APPLIED. PT DENIES ADDITONAL REQUESTS OR COMPLAINTS CONTINUES TALKING ON PHONE. CALL LIGHT WITHIN REACH.
--- NOTE | 2020-05-03 16:25 | NUR ---
THIS RN TO ROOM TO CHECK ON PT. PT UP TO CHAIR WATCHING TV. PT ENCOURAGED TO AMBULATE. PT UP TO AMBULATE WITH STAND BY ASSIST, NO WALKER NEEDED. PT AMBULATES X1 LAP IN [place]. PT BACK TO ROOM. PT REPORTS 4/10 THROBBING PAIN IN LEFT FOOT. SEE MAR FOR MEDICATION GIVEN. NO ADDITIONAL REQUESTS OR COMPLAINTS. CALL LIGHT WITHIN REACH.
--- NOTE | 2020-05-03 17:06 | NUR ---
EVENING MEDICATION DUE. PT UP TO CHAIR, EATING DINNER. MEDICATION GIVEN (SEE MAR). ICE WATER REFILLED. NO ADDITIONAL REQUESTS OR COMPLAINTS. CALL LIGHT WITHIN REACH.
--- NOTE | 2020-05-03 17:38 | NUR ---
PT HERE FOR LEFT LEG CELLULITUS AND SEPSIS. PT UP TO AMBULATE IN [place] WITH STAND BY ASSIST X3 THIS SHIFT. PT TOLERATING 60G CARB DIET WITH GOOD APPITITE. SLIDING SCALE AND SCHEDULED INSULIN GIVEN WITH BLOOD SUGAR CHECKS AT MEAL TIME. PT REPORTS 2-4/10 PAIN THIS SHIFT. PRN PAIN MEDICATION GIVEN. REDNESS, WARMTH, AND SWELLING CONTINUE TO LEFT LOWER EXTREMITY. SHOWER AND DRESSING CHANGE THIS SHIFT. NEW REDNESS NOTED TO TEX AREA, MICONAZOLE POWDER ORDERED AND APPLIED AFTER SHOWER. IV VANCO GIVEN. PT VOIDING QUANTITY SUFFICIENT. PT USES CALL LIGHT APPROPRIATLY.
--- NOTE | 2020-05-03 18:01 | NUR ---
THIS RN TO ROOM TO CHECK ON PT. PT REPORTS 4/10 THROBBING PAIN AND REQUESTS PAIN MEDICATIONS. SEE MAR FOR MEDICATION GIVEN. PT FINISHED WITH DINNER, ATE 100%. PT UP INDEPENDANTLY IN ROOM FOR ORAL CARE AND EVENING CARES. PT DENIES ADDITONAL REQUESTS OR COMPLAINTS. CALL LIGHT WITHIN REACH. BED RAILS UP.
--- NOTE | 2020-05-03 19:11 | NUR ---
RECEIVED REPORT FROM HUY CISNEROS. pt SITTING IN BED. DISCUSSED DAY. NO REQUESTS AT THIS TIME. WHITEBOARD UPDATED. CALL LIGHT WITHIN REACH.
--- NOTE | 2020-05-03 21:30 | NUR ---
IN TO DO ASSESSMENT. pt REPORTED 2/10 PAIN AT THIS TIME. DRESSING CDI. MEDICATIONS GIVEN (SEE MAR). PROVIDED FRESH WATER. CALL LIGHT WITHIN REACH.
--- NOTE | 2020-05-04 02:31 | NUR ---
BLOOD SUGAR DONE, SS INSULIN PER ORDERS. ASSESSMENT DONE. SCANT AMOUNT OF DRY DRAINAGE NOTED ON DRESSING. INTACT. pt STATES PAIN IS "OKAY" PROVIDED FRESH WATER. CALL LIGHT WITHIN REACH.
--- NOTE | 2020-05-04 06:23 | NUR ---
ROUNDED ON pt. AWAKE LAYING IN BED. VITALS AND I&O RECORDED. pt RATED PAIN 1-2/10, REPORTED "I SLEPT JUST FINE." PROVIDED FRESH WATER AND COFFEE. DRESSING INTACT. NO NEW DRAINAGE NOTED. CALL LIGHT WITHIN REACH. pt SITTING IN BED WATCHING TV.
--- NOTE | 2020-05-04 07:12 | NUR ---
REPORT RECEIVED FROM HUY SOTO. PT UP INDEPENDANTLY TO RESTROOM, STEADY ON FEET. PT REPORTS 1-2/10 PAIN IN LEFT FOOT THAT iS "GETTING BETTER." PT STATES "I FEEL LIKE I CAN MOVE IT MORE." PT ASSISTED WITH PLUGGING IN HIS PHONE TO CHARGE. NO ADDITIONAL REQUESTS OR COMPLAINTS. CALL LIGHT WITHIN REACH.
--- NOTE | 2020-05-04 07:53 | NUR ---
MORNING ASSESSMENT AND MEDICATION DUE. PT UP TO CHAIR WATCHING TV, ANTICIPATING BREAKFAST. PT REPORTS 1-2/10 PAIN IN LEFT FOOT THAT IS "MUCH BETTER TODAY." PT DENIES NEED FOR PAIN MEDICATION AT THIS TIME. PT UP TO AMBULTE IN [place] WITH THIS RN X1 LAP. PT STEADY ON FEET WITH STAND BY ASSIST, NO WALKER NEEDED. PT DEMONSTRATES GREATER RANGE OF MOTION IN LEFT ANKLE. NOW ABLE TO ROTATE ANKLE IN SMALL CIRCLES, LESS RESTRICTED BY SWELLING. BASELINE NEUROPATHY REMAINS IN FEET, UNCHANGED. SWELLING IMPROVED TO LEFT LOWER EXTREMITY, NOW +2 PITTING EDEMA. +2 PITTING EDEMA ALSO NOTED IN RIGHT LOWER EXTREMITY. PT ASKS WHEN HE WILL RESTART HIS LASIX AND HCTZ, PT ENCORUAGE TO ASK MD DURING ROUNDS TODAY. LEFT LOWER EXTRTEMITY REMAINS RED AND MILDLY WARM TO TOUCH. REDNESS NOTED TO BE WITHIN MARKED AREA. DRESSING REMOVED. BLISTERS LESS PROMINANT TODAY. BLISTER OVER LEFT TAPIA NOW MEASURES 7CM IN LENGTH BY 3CM WIDTH. BLISTER TO TOP OF LEFT FOOT BURST PREVIOUSLY, DARKER REDDENED AREA NOTED AT BASE OF BLISTER MEASURING 9CM BY 7CM. LOOSE SKIN NOTED, PT STATES HE WILL SHOWER AFTER BREAKFAST, WILL ASSESS LOOSE SKIN REMOVAL, PER DR. CASTELLANOS, AT THAT TIME. BLISTER TO BOTTOM OF FOOT MUCH LESS VISIABLE/SWOLLEN, MEASURES 6CM BY 3CM. DRESSING REMAINS OFF AT THIS TIME. MILD REDENED RASH NOTED IN TXE AREA, WILL APPLY MICONAZOLE POWDER AFTER SHOWER. MEDICATION GIVEN (SEE MAR). PT EATING BREAKFAST. NO ADDITIONAL REQUESTS OR COMPLAINTS AT THIS TIME. CALL LIGHT WITHIN REACH.
--- NOTE | 2020-05-04 09:13 | NUR ---
PT FINISHED WITH SHOWER. IV VANCO ARRIVED FROM [facility], IV ASSESED, BLOOD RETURN NOTED. NO REDNESS, SWELLING, OR PAIN AT IV SITE. VANCO STARTED (SEE MAR). MICONAZOLE POWDER APPLIED TO TEX AREA. DRIED, EXTRA SKIN TO BLISTER ON TOP OF FOOT REMOVES EASILY AFTER MOISTURE FROM SHOWER. PT RESTING IN BED. NO ADDIITONAL REQUESTS OR COMPLAINTS. CALL LIGHT WITHIN REACH. WILL REAPPLY DRESSING SHORTLY.
[2020-05-04] MEDS ORDERED: DOXYCYCLINE HY100 MG PO (09:43)
--- NOTE | 2020-05-04 09:53 | NUR ---
PATIENT AWAKE SITTING UP IN BED, FINISHED WITH SHOWER AND ANTICIPATING D/C LATER TODAY. VITALS AND I&IOS CHARTED. CALL LIGHT IN REACH. PATIENT USED STAFF SCISSORS TO CUT HIS LEFT SWEATPANT LEG FOR COMFORT. CALL LIGHT IN REACH
--- NOTE | 2020-05-04 10:17 | NUR ---
THIS RN TO ROOM TO CHECK ON PT. PT REPORTS HE HAS VISITED WITH THE DOCTOR AND HE IS ANTICIPATING DISCHARGE TODAY. MOISTERIZER AND NEW DRESSING APPLIED TO LEFT LOWER EXTREMITY PER MD ORDER. NO SLIP SOCKS APPLIED WELL. PT REPORTS 1-2/10 PAIN THAT IS "STILL A LOT BETTER." PT DENIES NEED FOR PAIN MEDICATION AT THIS TIME. NO ADDITIONAL REQUSTS OR COMPLAINTS AT THIS TIME. CALL LIGHT WITHIN REACH. BED RAILS UP.
--- NOTE | 2020-05-04 11:02 | NUR ---
PHARAMCIST TO BEDSIDE TO REVIEW MEDICATION WITH PT. PT ASKS ABOUT IF HE WILL NEED A BOOT OR DERSSING SUPPLIES TO TAKE HOME RELATED TO HIS LEFT FOOT. CONTULTED. MED STATE TO SEND PT WITH 1 DAY OF DRESSING CHANGE SUPPLIES AND AFTER THAT PT WILL HAVE WOUND CONSULTATION AN OUTPATIENT. MD DENIES NEED FOR BOOT. PT UPDATED. PT VERBALIZES UNDERSTANDING OF MEDICATONS AND STATES HIS QUESITONS HAVE BEEN ANSWERED.
[2020-05-04] MEDS ORDERED: PENTOXIFYLLINE400 MG PO (11:14)
[2020-05-04] MEDS ORDERED: NORVASC10 MG PO (11:14)
[2020-05-04] MEDS ORDERED: LASIX40 MG PO (11:14)
[2020-05-04] MEDS ORDERED: CATAPRES0.1 MG PO (11:14)
--- NOTE | 2020-05-04 11:24 | NUR ---
PUMP ALARMING, INFUSION AND FLUSH COMPLETE. IV SALINE LOCKED AND DC'D PER PROTOCOL. GAUZE AND COBAN APPLIED. OSBALDO, PHARMACIST, STATES PT DOES NOT HAVE HIS NORMAL HOME MEDICATIONS. CONSULTED AND ORDERS SENT TO [facility] FOR [facility]ES UNTIL PT IS ABLE TO SEE A NEW PRIMARY CARE PROVIDER. PT DENIES ADDITIONAL REQUESTS OR COMPLAINTS. UP TO GET DRESSED, INDEPENDANT WITH DRESSING. CALL LIGHT WITHIN REACH.
--- NOTE | 2020-05-04 13:10 | NUR ---
PT FINISHED WITH LUNCH AND READY FOR DISCHARGE. NOTED THAT PTS BLOOD SUGAR WAS NOT TAKEN PRIOR TO LUNCH. DR. WATERS CALLED WITH BLOOD SUGAR RESULT AND STATES TO HOLD SLIDING SCALE INSULIN. BASELINE 3 UNITS GIVE PER MD ORDER. SLIDING SCALE INSULIN HELD. DISCHARGE INSTRUCTIONS REVIWED WITH PT. PT VERBALIZES UNDERSTANDING OF INSTRUCTIONS, MEDICATION, FOLLOW UP WITH DAY SURGERY FOR WOUND CARE, AND FOLLOW UP WITH PRIMARY CARE. PT TRANSFERS SELF TO WHEEL CHAIR. PT WHEELED FROM MED/SURG WITH BELONGINGS TO MEET [facility] TRANSPORTATION BACK TO HIS ROOM. PT STATES HE HAS NO ADDITIONAL REQUESTS, CONCERNS, OR QUESTIONS.
--- NOTE | 2020-05-04 13:49 | NUR ---
PT WAS ON PHONE WHEN I CHECKED IN ON HIM. WILL CHECK BACK AGAIN
--- NOTE | 2020-05-05 07:25 | NUR ---
Called and left a message for Noreen Leavitt at [facility]. Updated I have faxed a face sheet with insurance information and DC summary for Ghanshyam. Requested they schedule an appt for pt to establish care as we had discussed last week. She wa unable to schedule last week as there was not a dc date and pt did not have insurance.
--- NOTE | 2020-05-05 09:39 | NUR ---
Received call from Noreen manzano is scheduled to see Dr. Lilliam Wolff 05/06/20 at 3;10pm. Pt needs to arrive 20 min early. Attemtped to call pt to notify, his phone does not have voice mail. Wrote information on paper and took to [facility], they will give to pt. when he arrives today for appt.
== END 2020-05-04 13:10 | disposition home or self-care (01) | DRG 603 ==
LOC: ED 17:47 → MS 20:17
PROVIDERS: ADMIT Internal Medicine; ATTEND Internal Medicine
DX: L03.116 Cellulitis of left lower limb (principal); Z68.42 Body mass index [BMI] 45.0-49.9, adult; Z20.822 Contact with and (suspected) exposure to COVID-19; E11.319 Type 2 diabetes mellitus with unspecified diabetic retinopathy without macular edema; I10 Essential (primary) hypertension; E66.01 Morbid (severe) obesity due to excess calories; E88.09 Other disorders of plasma-protein metabolism, not elsewhere classified; E11.40 Type 2 diabetes mellitus with diabetic neuropathy, unspecified; Z88.5 Allergy status to narcotic agent; Z88.4 Allergy status to anesthetic agent; Z79.899 Other long term (current) drug therapy; Z79.4 Long term (current) use of insulin
CPT/HCPCS: 36415; 76705; 80053; 80202; 82565; 82728; 83036; 83540; 83605; 83735; 83880; 84466; 84520; 85007; 85025; 85032; 86060; 87040; 90686; 93306; 96374; 99284-25; C9803; J0690; J1650; J1815; J2405; J3370; J7060; J7121; U0003